=== PATIENT | male | born 1955 | race Caucasian/White ===

== ENCOUNTER 2016-10-31 11:08 | Inpatient (IN) | payer OTHER ==
[~2016-10-31] VITALS: Ht 170.2 cm; Wt 84.3 kg
[2016-10-31] MEDS ORDERED: ASPI-496 PO (11:39)
[2016-10-31 13:23] LABS: HEMOGLOBIN 12.2 g/dL (13.7-18.0)
[2016-10-31] MEDS ORDERED: HEPARIN 5,000 UNITS/ML, 1ML IV ONE (13:30)
[2016-10-31 13:36] LABS: BLOOD UREA NITROGEN 11 mg/dL (7-18)
[2016-10-31 13:42] LABS: IS PT STATUS REG ER OR PRE ER? YES
[2016-10-31] MEDS ORDERED: HEPARIN 25,000 UNITS/500ML PMX 500 ML ONE (13:45)
[2016-10-31] MEDS ORDERED: HEPARIN 5,000 UNITS/ML, 1ML ONE (13:46)
[2016-10-31] MEDS: HEPARIN 25,000 UNITS/500ML PMX 500 ML IV PRN (13:54)
[2016-10-31] MEDS ORDERED: LABETALOL 5MG/ML, 20ML IV PRN (15:00)
[2016-10-31] MEDS ORDERED: POLYETHYLENE GLYCOL 17 GM PACKET PO PRN (15:00)
[2016-10-31] MEDS ORDERED: ACETAMINOPHEN 325 MG TABLET PO PRN (15:00)
[2016-10-31] MEDS ORDERED: ONDANSETRON 2MG/ML, 2ML IVP PRN (15:00)
[2016-10-31] MEDS ORDERED: MORPHINE SULFATE 4 MG/ML, 1ML IVPush PRN (15:00)
[2016-10-31] MEDS ORDERED: ONDANSETRON ODT 4 MG PO PRN (15:00)
[2016-10-31] MEDS ORDERED: DOCUSATE 100 MG CAPSULE PO PRN (15:00)
[2016-10-31] MEDS ORDERED: BISACODYL 10 MG SUPP PR PRN (15:00)
[2016-10-31] MEDS: SODIUM CHLORIDE 0.9% 1,000 ML IV SCH (15:12)
[2016-10-31 15:55] VITALS: BP 136/81
[2016-10-31] MEDS ORDERED: OMNIPAQUE 350 MG/ML, 100ML BOTTLE ONE (17:30)
[2016-10-31 19:45] VITALS: BP 137/75
[2016-10-31] MEDS: HEPARIN 5,000 UNITS/ML, 1ML IV PRN (22:55)
[2016-11-01] MEDS: SODIUM CHLORIDE 0.9% 1,000 ML IV SCH ×3 (02:08→20:13)
[2016-11-01] MEDS: HYDROcodone/APAP 5/325 TABLET PO PRN ×2 (02:08→11:13)
[2016-11-01 03:07] VITALS: BP 129/78
[2016-11-01 07:03] LABS: HEMOGLOBIN 11.8 g/dL (13.7-18.0)
[2016-11-01 07:06] LABS: BLOOD UREA NITROGEN 10 mg/dL (7-18)
[2016-11-01 07:12] LABS: ASPARTATE AMINO TRANSFERASE 19 U/L (15-37)
[2016-11-01 07:39] VITALS: BP 118/80
[2016-11-01] MEDS: HEPARIN 5,000 UNITS/ML, 1ML IV PRN ×2 (07:50→17:47)
[2016-11-01 14:13] VITALS: BP 124/80
[2016-11-01] MEDS: HEPARIN 25,000 UNITS/500ML PMX 500 ML IV PRN (17:46)
[2016-11-01 19:27] VITALS: BP 122/73
[2016-11-02] MEDS: HEPARIN 5,000 UNITS/ML, 1ML IV PRN (00:27)
[2016-11-02 03:19] VITALS: BP 105/62
[2016-11-02] MEDS: SODIUM CHLORIDE 0.9% 1,000 ML IV SCH (05:26)
[2016-11-02] MEDS ORDERED: RIVAROXABAN 15 MG TABLET PO SCH (11:00)
[2016-11-02 11:34] VITALS: BP 129/90
[2016-11-02] MEDS ORDERED: FLU VACC QS2016-17 (36MOS+)UP/PF 0.5 ML IM-VACC ONE (12:00)
[2016-11-02] MEDS ORDERED: RIVA20TA PO (13:03)
[2016-11-02] MEDS ORDERED: RIVA15TA PO (13:03)
[2016-11-02 13:20] VITALS: BP 131/81
== END 2016-11-02 16:45 | disposition home or self-care (01) | DRG 300 ==
LOC: ED 11:51 → SUATTDRO 13:02 → EDIP 13:05 → 4NOR 15:55 → DCLOUNGE 11-02 15:45
PROVIDERS: ADMIT Internal Medicine; ATTEND Internal Medicine
DX: I82.431 Acute embolism and thrombosis of right popliteal vein (principal); D68.69 Other thrombophilia; D64.9 Anemia, unspecified; E88.09 Other disorders of plasma-protein metabolism, not elsewhere classified; E66.9 Obesity, unspecified; R00.0 Tachycardia, unspecified; Z82.49 Family history of ischemic heart disease and other diseases of the circulatory system; Z83.3 Family history of diabetes mellitus; Z68.29 Body mass index [BMI] 29.0-29.9, adult; Z88.8 Allergy status to other drugs, medicaments and biological substances
CPT/HCPCS: 36415; 71275; 80048; 80053; 82040; 83880; 84484; 85025; 85520; 85610; 85730; 90686; 96374; J1644; Q0162; Q9967; J7030